=== PATIENT | female | born 1935 | race African-American/Black ===

== ENCOUNTER 2018-06-28 17:38 | Emergency (ER) | payer OTHER ==
[~2018-06-28] VITALS: Ht 160 cm; Wt 62.6 kg
--- NOTE | 2018-06-28 18:01 | NUR ---
BIBRA 78 from home c/o dysphagia around 1130am,DURING GYM WORKOUT resolved this morning, +LEFT SIDED FACIAL DROOP, PT STATES THIS IS HER NORMAL SMILE, HX TIA, 20 YRS AGO, LYMPHADEMA RIGHT ARM, AXOX4
[2018-06-28 18:15] LABS: BASOPHILS # (AUTO) 0.1 /CMM (0.0-0.2); BASOPHILS % (AUTO) 1.2 % (0.0-2.0); EOSINOPHILS % (AUTO) 0.4 % (0.0-6.0); HEMATOCRIT 40 % (33-45); LYMPHOCYTES # (AUTO) 1.8 /CMM (0.8-4.8); LYMPHOCYTES % (AUTO) 25.5 % (20.0-44.0); MEAN CORPUSCULAR HGB CONC 33 g/dl (31.0-36.0); MEAN CORPUSCULAR VOLUME 83 fL (82-100); MONOCYTES # (AUTO) 0.7 /CMM (0.1-1.30); MONOCYTES % (AUTO) 9.5 % (2.0-12.0); NEUTROPHILS # (AUTO) 4.5 /CMM (1.8-8.9); NEUTROPHILS % (AUTO) 63.4 % (43.0-81.0); PLATELET COUNT (AUTO) 194 /CMM (150-450); WHITE BLOOD COUNT (AUTO) 7.1 K/uL (4.3-11.0)
[2018-06-28 18:27] LABS: CALCIUM, SERUM 10.4 mg/dL (8.5-10.1); CARBON DIOXIDE 30 mmol/L (21-32); CHLORIDE 102 mmol/L (98-107); CREATININE 1.4 mg/dL (0.6-1.3); GLUCOSE 114 mg/dL (74-106); POTASSIUM 3.6 mmol/L (3.5-5.1); SODIUM SERUM 141 mmol/L (136-145); UREA NITROGEN, BLOOD 28 mg/dL (7-18)
--- NOTE | 2018-06-28 19:10 | NUR ---
CALLED [facility] SPOKE WITH ANDREA TO PRESENT CASE. EXPECTING A CALL BACK FROM [facility]
--- NOTE | 2018-06-28 19:20 | NUR ---
DR JOHNSON SPEAKING WITH [facility]
[2018-06-28] MEDS ORDERED: ASPIRIN 325 MG TABLET ONE (19:29)
[2018-06-28] MEDS ORDERED: ASPIRIN 325 MG TABLET PO ONE (19:30)
--- NOTE | 2018-06-28 19:33 | NUR ---
PT STABLE AND COMFORTABLE , REPORT GIVEN TO ZACHARY JONES RAN
--- NOTE | 2018-06-28 19:35 | NUR ---
Resumed care from RBOERT Walton. Pt is resting in bed comfortably, no weakness noted, no neuro deficits seen at this time. Assisted to bathroom. able to walk without difficulty.Will continue to monitor.
--- NOTE | 2018-06-28 20:15 | NUR ---
PT ACCEPTED TO [facility] ER # FOR REPORT: [phone] [facility] ETA 2100 ACCPETED BY Tammy CHRIS
--- NOTE | 2018-06-28 20:57 | NUR ---
Report given to ROBERT Valadez, [facility]. Pt notified of transfer, awaiting pick by [facility]. VSS
[2018-06-28 20:58] VITALS: BP 157/75
--- NOTE | 2018-06-28 21:25 | NUR ---
Pt's transport is here to pick her up. Report given to [facility] staff Delia. Patient transported via gurney in stable condition. Written and verbal after care instructions given. Patient verbalizes understanding of instruction.VSS
== END 2018-06-28 21:45 | disposition short-term general hospital (02) ==
LOC: ER 17:40
DX: G45.9 Transient cerebral ischemic attack, unspecified (principal); I44.0 Atrioventricular block, first degree; I10 Essential (primary) hypertension; E11.9 Type 2 diabetes mellitus without complications; E78.00 Pure hypercholesterolemia, unspecified
CPT/HCPCS: 36415; 70450; 71045; 80048; 84484; 85025; 85730; 93005; 99285; A4606